=== PATIENT | female | born 1940 | race Caucasian/White ===

== ENCOUNTER 2017-09-17 13:24 | Outpatient (CLI) | payer OTHER | END 2017-09-17 13:25 | disposition home or self-care (01) | LOC: BICRAD 13:24 | PROVIDERS: ATTEND Family Medicine | DX: M54.5 Low back pain (principal); M47.816 Spondylosis without myelopathy or radiculopathy, lumbar region; Z98.1 Arthrodesis status | CPT/HCPCS: 72110 ==

== ENCOUNTER 2017-12-11 14:44 | Outpatient (CLI) | payer OTHER ==
[~2017-12-11 14:44] MED LIST: Gadobenate Dimeglumine 529 MG/1 ML (20ML VIAL) ONE
--- NOTE | 2017-12-11 18:36 | RAD ---
LUMBAR SPINE FOUR VIEWS INCLUDING FLEXION AND EXTENSION LATERAL VIEWS: 12/11/17 HISTORY: 77-year-old female with history of low back pain, prior low back surgery as well as some lumbar radic ulopathy primarily in the left hip and groin. Postop laminectomy changes are noted at L3 and L4. Mild levoscoliosis. Approximately 1.0 cm anterolisthesis of L4 on L5 without significant abnormal transla tion between flexion and extension. Multilevel disc osteophytosis and facet arthrosis. Postop changes in the upper and mid abdomen. IMPRESSION: Laminectomy changes at L3 and L4 with anterolisthesis of L4 on L5 without abnormal translation betwee n flexion and extension. Mild scoliosis. Generalized spondylosis. No evidence for acute fracture. POS: [facility]
--- NOTE | 2017-12-11 18:59 | MRI ---
MRI LUMBAR SPINE WITH AND WITHOUT GADOLINIUM CONTRAST: 12/11/17 HISTORY: Low back pain. Left leg radiculopathy. Prior lumbar spine surgery September 2016. FINDINGS: The conus medullaris has a normal appearance. There is desiccation of all of the intervertebral discs . Vertebral body heights are maintained. Scattered mild discogenic end plate changes and Schmorl's no marianna are apparent within the bone marrow of the end plates. Mild posterior disc bulges are apparent at the T11-12 and T10-11 levels at the lower thoracic spine o n the sagittal images. T12-L1: Disc spaces narrowing. Mild posterior disc bulge. The thecal sac and neural foramen are paten t. L1-2: Mild osteophytosis. The central canal and neural foramina are patent. L2-3: Diffuse posterior disc bulge. Circumferential degenerative changes result in mild stenosis of t he central canal and moderate stenosis of each neural foramen. L3-4: Mild disc bulge. Circumferential degenerative changes result in mild stenosis of the central c anal. There is moderate right and severe left foraminal stenoses. L4-5: Disc space narrowing. Grade I degenerative spondylolisthesis. Posterior operative decompression , so that the thecal sac is patent. Mild right and moderate left foraminal stenoses. At the posterior element operative defect, just to the right of midline, a lobular collection of fluid measures up to 3.4 cm in length x 1.9 cm in depth x 2.0 cm width and abuts the posterior aspect of the epidural sac . It is surrounded by enhancing scar tissue that extends superiorly to the level of the L2-3 interspa ce. L5-S1: Mild disc bulge. Osteophytosis of the facets. The thecal sac and neural foramina remain patent . IMPRESSION: 1. Degenerative changes of the lumbar spine as detailed above. Stenosis is most severe at the le ft L3-4 neural foramen. Clinical correlation regarding the left L3 dermatome is required. 2. Posterior operative decompression at the L4-5 level. There is a large area of scar tissue con taining a residual fluid collection measuring up to 3.3 cm length. POS: [facility]
== END 2017-12-11 14:45 | disposition home or self-care (01) ==
LOC: SCSMRI 14:44
PROVIDERS: ATTEND Surgery
DX: M47.26 Other spondylosis with radiculopathy, lumbar region (principal); M43.16 Spondylolisthesis, lumbar region; M41.9 Scoliosis, unspecified; M99.83 Other biomechanical lesions of lumbar region; L90.5 Scar conditions and fibrosis of skin; Z98.1 Arthrodesis status
CPT/HCPCS: 72120; 72158; 82565; A9579

== ENCOUNTER 2017-12-29 11:43 | Outpatient (CLI) | payer OTHER ==
[2017-12-29 13:26] LABS: Hemoglobin 14.4 g/dL (12.0-16.0); Mean Corpuscular HGB CONC 34.6 g/dL (32.0-36.0); Mean Corpuscular Hemoglobin 31.1 pg (27.0-31.0); Mean Corpuscular Volume 90.1 fl (81.0-99.0); Mean Platelet Volume 6.8 fL (7.4-10.4); Platelet Count 179 thou/uL (130-400); RBC Distribution Width 11.7 % (11.5-14.5); Red Blood Cell (RBC) Count 4.62 mill/uL (4.20-5.40); White Blood Cell (WBC) Count 8.1 thou/uL (4.8-10.8)
[2017-12-29 13:33] LABS: Prothrombin Time 13.5 SEC (12.0-14.7)
[2017-12-29 13:34] LABS: PTT 26.9 SEC (22.9-36.1)
[2017-12-29 13:54] LABS: Anion Gap 12 mmol/L (10-20); BUN (Urea Nitrogen) 13 mg/dL (9.8-20.1); Calc. Creatinine Clearance 0 mL/min (70-130); Calcium 9.7 mg/dL (7.8-10.44); Carbon Dioxide 24 mmol/L (23-31); Chloride 104 mmol/L (98-107); Estimated GFR-MDRD 70; Glucose 144 mg/dL (83-110); Potassium 4.3 mmol/L (3.5-5.1); Sodium 136 mmol/L (136-145)
--- NOTE | 2017-12-29 22:11 | EKG ---
Test Reason : Blood Pressure : / mmHG Vent. Rate : 068 BPM Atrial Rate : 068 BPM P-R Int : 144 ms QRS Dur : 070 ms QT Int : 422 ms P-R-T Axes : -04 021 060 degrees QTc Int : 448 ms Normal sinus rhythm Normal ECG Confirmed by VIANEY LI M.D. ([id number]) on 12/29/2017 10:10:57 PM Referred By: HONEY Confirmed By:VIANEY LI M.D.
== END 2017-12-29 11:44 | disposition home or self-care (01) ==
LOC: LABBT 11:43
PROVIDERS: ATTEND Surgery
DX: Z01.818 Encounter for other preprocedural examination (principal); M51.16 Intervertebral disc disorders with radiculopathy, lumbar region
CPT/HCPCS: 80048; 85027; 85610; 85730; 93005; 93010

== ENCOUNTER 2018-01-01 05:50 | Observation (INO) | payer OTHER ==
[2017-12-29 12:35] VITALS: BMI 32.5
[2018-01-01] MEDS ORDERED: Bacitracin Zinc Ointment 30 gm TUBE ONE (06:27)
[2018-01-01] MEDS ORDERED: Sodium Chloride 0.9% 10 ML ONE (06:27)
[2018-01-01] MEDS ORDERED: Thrombin 5000 UNITS/5 ML VIAL ONE (06:27)
[2018-01-01] MEDS ORDERED: CEFAZOLIN/Water 2 GM/20 ML SYRINGE ONE (07:09)
[2018-01-01] MEDS ORDERED: Albumin 5% 0 ML ONE (07:09)
[2018-01-01] MEDS ORDERED: Famotidine/PF 20 mg/2ml Vial ONE (07:09)
[2018-01-01] MEDS ORDERED: Fentanyl 100 MCG/2 ML VIAL ONE ×5 (07:09→11:37)
[2018-01-01] MEDS ORDERED: Scopolamine 1.5 mg/72 hour Patch ONE (07:35)
[2018-01-01] MEDS ORDERED: Morphine 4 MG/ML VIAL ONE (11:04)
[2018-01-01] MEDS ORDERED: traMADol HCl 50 MG TAB PO PRN ×2 (12:22)
[2018-01-01] MEDS ORDERED: Mag-Al 1200 mg/1200 mg/30 ML UDCUP PO PRN (12:22)
[2018-01-01] MEDS ORDERED: HYDROcodone/Acetaminophen 7.5/325 mg Tablet PO PRN ×2 (12:22)
[2018-01-01] MEDS ORDERED: Bisacodyl 10 MG SUPP PR PRN (12:22)
[2018-01-01] MEDS ORDERED: tiZANidine HCl 4 MG TAB PO PRN (12:22)
[2018-01-01] MEDS ORDERED: Fleet Enema 133 ML BOT PR PRN (12:22)
[2018-01-01] MEDS ORDERED: Zolpidem Tartrate 5 MG TAB PO PRN (12:22)
[2018-01-01] MEDS ORDERED: Milk Of Magnesia 30 ML UDCUP PO PRN (12:22)
[2018-01-01] MEDS ORDERED: Ondansetron HCl/PF 4 MG/2 ML Vial IM PRN (12:24)
[2018-01-01] MEDS ORDERED: Morphine 4 MG/ML VIAL SLOW IVP PRN ×2 (12:28→12:29)
--- NOTE | 2018-01-01 12:31 | OP ---
DATE OF PROCEDURE: 01/01/2018 OR: OR #11 WOUND TYPE: Type 1 wound. SURGEON: Jad Barnett M.D. PREPROCEDURE DIAGNOSES: Left L3 and left L4 radiculopathy with history of L2-L5 decompressive eran ctomy with disk extrusion and far lateral component. PROCEDURE: 1. Left L3-L4 hemilaminotomy, foraminotomy for diskectomy for decompression of the traversing left L 4 nerve root. 2. Transfacet lateral approach for decompression of the exiting left L3 nerve root due to lateral di sk extrusion. 3. Use of operative microscope for microdissection. DESCRIPTION OF PROCEDURE: After informed consent was obtained from the patient, the patient was brou ght to OR 11. Proper patient pause and identification was carried out. She was placed under excelle nt endotracheal anesthesia and positioned prone on the operating table. All appropriate points were padded. The prior L2-L5 wound was identified and a linear jose drawn out in this region. This area was sterilely cleansed, prepared, and draped. Proper patient pause and identification was carried ou t. Midline wound was opened and we proceeded over the left L2, L3 and left L3-L4 segments and identi fied the pars of L3 and L4 on the left side. We then used localization film to identify our area of interest and left L3-L4 hemilaminotomies were performed. The microscope was then brought in the fie ld and we worked through scar tissue and identified the exiting left L3 nerve root and then the trave rsing left L4 nerve root. The disk space was then identified and entered and a paracentral diskectom y was performed through standard left L3-L4 hemilaminotomy approach. I then turned to the far latera l component utilizing a transfaucet and identified the exiting left L3 nerve root and far lateral dis k material. This was then removed outside of the foramen to maximize decompression of the exiting le ft L3 nerve root. At the conclusion of the case I felt as if we had excellent decompression of the e xiting left L3 and traversing left L4 nerve roots. Copious irrigation occurred throughout as did max imizing hemostasis. The wound was then closed in anatomic layers following the sprinkling of vancomy lacey powder. The patient then emerged from anesthesia.
[2018-01-01] MEDS ORDERED: Gabapentin 300 MG CAP PO PRN (12:32)
[2018-01-01] MEDS ORDERED: Morphine 4 MG/ML Carpuject SLOW IVP PRN (12:54)
[2018-01-01] MEDS ORDERED: Ondansetron HCl/PF 4 MG/2 ML Vial IVP PRN (12:54)
[2018-01-01] MEDS ORDERED: Non-Formulary Medication 1 EACH PO PRN (12:54)
[2018-01-01] MEDS ORDERED: Promethazine HCl 25 MG/ML VIAL IM/IV PRN (12:54)
[2018-01-01] MEDS ORDERED: Morphine Sulfate 2 MG/ML SYRINGE SLOW IVP PRN (12:54)
[2018-01-01] MEDS: Sodium Chloride 0.9% 1,000 ML IV SCH (13:13)
[2018-01-01] MEDS ORDERED: Glycopyrrolate 0.2 MG/ML 5 ML SYRINGE ONE (14:36)
[2018-01-01] MEDS ORDERED: PHENYLEPHRINE-NS 100 MCG/ML 10 ML SYRINGE ONE (14:36)
[2018-01-01] MEDS ORDERED: Ondansetron HCl/PF 4 MG/2 ML Vial ONE (14:36)
[2018-01-01] MEDS ORDERED: Lidocaine 1% PF 5 ML VIAL ONE (14:36)
[2018-01-01] MEDS ORDERED: PROPOFOL 200 MG/20 ML VIAL ONE (14:36)
[2018-01-01] MEDS: CEFAZOLIN/Water 2 GM/20 ML SYRINGE SLOW IVP SCH (17:51)
[2018-01-01] MEDS: Ketorolac Tromethamine 30 MG/ML VIAL IVP SCH (17:59)
[2018-01-01] MEDS: Ciprofloxacin 500 MG TAB PO SCH (20:52)
[2018-01-01] MEDS ORDERED: traZODone HCl 50 MG TAB PO SCH (21:00)
[2018-01-01] MEDS ORDERED: DULoxetine 60 MG CAP PO SCH (21:00)
[2018-01-02] MEDS: Sodium Chloride 0.9% 1,000 ML IV SCH (00:01)
[2018-01-02] MEDS: Ketorolac Tromethamine 30 MG/ML VIAL IVP SCH ×2 (00:01→05:10)
[2018-01-02] MEDS: CEFAZOLIN/Water 2 GM/20 ML SYRINGE SLOW IVP SCH (02:14)
[2018-01-02] MEDS: Ciprofloxacin 500 MG TAB PO SCH (05:09)
[2018-01-02 08:01] VITALS: BP 117/53; TEMP 98.4
--- NOTE | 2018-01-02 09:27 | PRG ---
DATE OF SERVICE: 01/02/2018 Ms. Landis is postoperative day 1 from left L3-L4 hemilaminotomy, foraminotomy, and [facility]ression of the left L3 and left L4 nerve roots. She is doing very well this morning with resolution in her left leg pain. She has good strength throughout her lower extre mity myotomes. She has ambulated in her room, but not yet in the [facility]. Her dressing is dry. We manjinder l plan for discharge today. We went over intra and postoperative issues.
--- NOTE | 2018-01-05 09:38 | DIS ---
Ms. Landis is known to me. She has a history of multilevel lumbar stenosis with improvement followi ng multilevel lumbar laminectomy. Recently, she developed left L3 and left L4 radiculopathy and was found to have a far lateral disk extrusion compressing the left L3 with a paracentral component and f acet hypertrophy compressing the left L4 nerve root. She underwent surgery which was a left L3-L4 de compression of the transfacet lateral approach for removal of the lateral disk extrusion. She tolera thalia this well and was dismissed the next day neurologically at her baseline.
== END 2018-01-02 11:15 | disposition home or self-care (01) ==
LOC: SDC 05:50 → SJJU 11:16 → SDC 12:34
PROVIDERS: ADMIT Surgery; ATTEND Surgery
PROC: 00NY0ZZ Release Lumbar Spinal Cord, Open Approach (ICD-10-PCS; principal; 2018-01-02)
PROC: 0SB20ZZ Excision of Lumbar Vertebral Disc, Open Approach (ICD-10-PCS; 2018-01-02)
DX: Z98.890 Other specified postprocedural states; M51.16 Intervertebral disc disorders with radiculopathy, lumbar region
CPT/HCPCS: 76001; 96361; 96374; 96375; 96376; A4216; G0378; J0131; J1885; J2001; J2270; J2405; J2704; J3010; J3370; J3490; P9045; S0028

== ENCOUNTER 2018-06-24 21:57 | Emergency (ER) | payer OTHER | END 2018-06-24 23:06 | disposition home or self-care (01) | LOC: ERS 21:57 | DX: Z00.00 Encounter for general adult medical examination without abnormal findings (principal); Z79.899 Other long term (current) drug therapy | CPT/HCPCS: 99283 ==

== ENCOUNTER 2018-10-20 07:32 | Outpatient (CLI) | payer OTHER ==
--- NOTE | 2018-10-20 08:58 | CT ---
NONCONTRAST ENHANCED CT IMAGES OF BRAIN WELL CONTRAST ENHANCED CTA BRAIN WITH 2D AND 3D RECONST RUCTION IMAGES PERFORMED ON AN INDEPENDENT 3D WORK STATION: HISTORY: Headache. The patient by history gives a history of aneurysm. FINDINGS: A noncontrast-enhanced CT of the brain demonstrates no evidence of acute strokes, masses, or hemorrha ges. CTA images brain demonstrate a left frontal lobe venous angioma. No evidence of intracranial aneurysms or vascular malformations seen otherwise. The ICA, MCA, COLLEEN, a nd posterior cerebral arteries are all unremarkable without evidence of aneurysms. No evidence of intracranial hemorrhage is seen. IMPRESSION: 1. Left frontal lobe venous angioma. 2. No evidence of significant intracranial masses or lesions seen otherwise. POS: [facility]
[2018-10-20] MEDS ORDERED: ISOVUE-370 76%-LOCM 1 ML ONE (09:49)
== END 2018-10-20 07:33 | disposition home or self-care (01) ==
LOC: BICCT 07:32
PROVIDERS: ATTEND Family Medicine
DX: R51 Headache (principal); D18.02 Hemangioma of intracranial structures
CPT/HCPCS: 70496; 82565

== ENCOUNTER 2019-06-19 20:04 | Emergency (ER) | payer OTHER ==
[2019-06-19 20:41] LABS: #Basophils 0.1 thou/uL (0.0-0.2); #Eosinphils 0.7 thou/uL (0.0-0.7); #Lymphocytes 3.2 thou/uL (1.20-3.40); #Monocytes 0.7 thou/uL (0.11-0.59); #Neutrophils 4.8 thou/uL (1.40-6.50); %Basophils 1.1 % (0.0-1.0); %Eosinophils 6.9 % (0.0-10.0); %Lymphocytes 33.6 % (21.0-51.0); %Monocytes 7.3 % (0.0-10.0); %Neutrophils 51.1 % (42.0-75.0); Hemoglobin 14.9 g/dL (12.0-16.0); Mean Corpuscular HGB CONC 34.8 g/dL (32.0-36.0); Mean Corpuscular Hemoglobin 31.8 pg (27.0-31.0); Mean Corpuscular Volume 91.3 fL (78.0-98.0); Mean Platelet Volume 6.9 fL (7.4-10.4); Platelet Count 186 thou/uL (130-400); RBC Distribution Width 11.7 % (11.5-14.5); Red Blood Cell (RBC) Count 4.68 mill/uL (4.20-5.40); White Blood Cell (WBC) Count 9.5 thou/uL (4.8-10.8)
--- NOTE | 2019-06-19 20:43 | RAD ---
Frontal radiograph chest: 06/19/2019 COMPARISON: None HISTORY: Cough, fever, congestion, shortness of breath FINDINGS: No pneumothorax or pleural fluid. No focal consolidation or alveolar edema. Postoperative a nchors overlie the right humeral head. Postoperative clips are noted in the left upper quadrant. IMPRESSION: No radiographic evidence of acute cardiopulmonary disease.
[2019-06-19] MEDS ORDERED: methylPREDNISolone Sod Succ/PF 125 MG/2 ML VIAL ONE (20:52)
[2019-06-19] MEDS ORDERED: Albuterol Sulfate 2.5 mg/3 ml Neb ONE (20:57)
[2019-06-19 21:04] LABS: ALT (SGPT) 11 U/L (8-55); AST (SGOT) 13 U/L (5-34); Albumin 4.2 g/dL (3.4-4.8); Alkaline Phosphatase 86 U/L (40-150); Anion Gap 12 mmol/L (10-20); BUN (Urea Nitrogen) 15 mg/dL (9.8-20.1); Bilirubin, Total 0.5 mg/dL (0.2-1.2); Calc. Creatinine Clearance 0 mL/min (70-130); Calcium 10.2 mg/dL (7.8-10.44); Carbon Dioxide 25 mmol/L (23-31); Chloride 106 mmol/L (98-107); Estimated GFR-MDRD 67; Globulin 2.6 g/dL (2.4-3.5); Glucose 116 mg/dL (83-110); Potassium 4.2 mmol/L (3.5-5.1); Protein, Total 6.8 g/dL (6.0-8.3); Sodium 139 mmol/L (136-145)
== END 2019-06-19 23:00 | disposition home or self-care (01) ==
LOC: ERS 20:04
DX: R06.2 Wheezing (principal); I10 Essential (primary) hypertension; F31.9 Bipolar disorder, unspecified; Z79.899 Other long term (current) drug therapy
CPT/HCPCS: 71045; 80053; 84484; 85025; 93005; 94760; 96374; J2930; J7611

== ENCOUNTER 2020-02-22 13:42 | Outpatient (CLI) | payer OTHER ==
--- NOTE | 2020-02-22 16:52 | RAD ---
EXAM: CERVICAL SPINE FOUR VIEWS: 02/22/20 HISTORY: Neck pain. Left arm pain. C7 and T1 are obscured on the lateral views. No significant prevertebral soft tissue swelling. Genera lized disc osteophytosis and facet arthrosis. No significant prevertebral soft tissue swelling. IMPRESSION: Cervical spondylosis. No abnormal translation between flexion and extension. POS: [facility]
--- NOTE | 2020-02-22 17:00 | RAD ---
EXAM: LUMBAR SPINE FOUR VIEWS INCLUDING STANDING FLEXION AND EXTENSION VIEWS: 02/22/20 HISTORY: Low back pain and left leg pain. FINDINGS: Postop changes at L3 and L4 with laminectomy. Surgical clips in the region of the gallbladder and the epigastrium as well as bowel anastomotic postsurgical changes in the left lower abdomen. There are g eneralized disc osteophytosis and facet arthrosis changes. There is an approximately 0.8 cm grade I a nterolisthesis of L4 on L5. This shows no abnormal translation between flexion and extension. IMPRESSION: Laminectomy changes. Lumbar spondylosis. Stable grade I anterolisthesis of L4 on L5 without abnormal translation between flexion and extension. POS: [facility]
== END 2020-02-22 13:43 | disposition home or self-care (01) ==
LOC: BICRAD 13:42
PROVIDERS: ATTEND Surgery
DX: M54.5 Low back pain (principal); M79.605 Pain in left leg; M25.512 Pain in left shoulder; M54.2 Cervicalgia; M79.602 Pain in left arm; M62.81 Muscle weakness (generalized); Z98.890 Other specified postprocedural states; M43.16 Spondylolisthesis, lumbar region; M47.812 Spondylosis without myelopathy or radiculopathy, cervical region
CPT/HCPCS: 72050; 72110

== ENCOUNTER 2020-09-02 19:55 | Observation (INO) | payer OTHER ==
[~2020-09-02 19:55] MED LIST changes: -Gadobenate Dimeglumine 529 MG/1 ML (20ML VIAL) ONE; +Iopamidol-370 76% 500 ML 1 ML ONE
[2020-09-02 21:03] LABS: Bacteria/HPF None Seen HPF (None Seen); Bilirubin Negative (Negative); Blood, Urine 3+ (Negative); Clarity Clear (Clear); Glucose, Urine (Dipstick) Normal (Negative); Ketone, Urine Negative (Negative); Leukocyte Negative Leu/uL (Negative); Nitrite Negative (Negative); Protein, Urine (Dipstick) 10 mg/dL (Neg-Trace); RBC/HPF Greater than 50 HPF (0-3); Specific Gravity, Urine 1.027 (1.002-1.036); Squamous Epithelial 0-3 HPF (0-3); Urobilinogen Normal mg/dL (Less than 2); pH, Urine 6.5 (5.0-9.0)
[2020-09-02 22:24] LABS: #Basophils 0.1 thou/uL (0.0-0.2); #Eosinphils 0.4 thou/uL (0.0-0.7); #Lymphocytes 3.8 thou/uL (1.20-3.40); #Monocytes 0.7 thou/uL (0.11-0.59); #Neutrophils 5.6 thou/uL (1.40-6.50); %Basophils 0.6 % (0.0-1.0); %Eosinophils 3.6 % (0.0-10.0); %Lymphocytes 35.7 % (21.0-51.0); %Monocytes 6.9 % (0.0-10.0); %Neutrophils 53.2 % (42.0-75.0); Hemoglobin 15.8 g/dL (12.0-16.0); Mean Corpuscular HGB CONC 35.1 g/dL (32.0-36.0); Mean Corpuscular Hemoglobin 31.6 pg (27.0-31.0); Mean Corpuscular Volume 90.1 fL (78.0-98.0); Mean Platelet Volume 7.6 fL (7.4-10.4); Platelet Count 188 thou/uL (130-400); RBC Distribution Width 11.8 % (11.5-14.5); Red Blood Cell (RBC) Count 4.99 mill/uL (4.20-5.40); White Blood Cell (WBC) Count 10.6 thou/uL (4.8-10.8)
[2020-09-02 22:44] LABS: ALT (SGPT) 22 U/L (8-55); AST (SGOT) 21 U/L (5-34); Albumin 4.3 g/dL (3.4-4.8); Alkaline Phosphatase 84 U/L (40-110); Anion Gap 19 mmol/L (10-20); BUN (Urea Nitrogen) 22 mg/dL (9.8-20.1); Bilirubin, Total 1.3 mg/dL (0.2-1.2); Calc. Creatinine Clearance 0 mL/min (70-130); Calcium 10.2 mg/dL (7.8-10.44); Carbon Dioxide 21 mmol/L (23-31); Chloride 106 mmol/L (98-107); Glucose 129 mg/dL (83-110); Lipase 24 U/L (8-78); Potassium 4.4 mmol/L (3.5-5.1); Protein, Total 7.3 g/dL (6.0-8.3); Sodium 142 mmol/L (136-145)
[2020-09-02] MEDS ORDERED: Morphine 4 MG/ML VIAL ONE (22:44)
[2020-09-02] MEDS ORDERED: Ondansetron PF 4 MG/2 ML Vial ONE (22:44)
[2020-09-02] MEDS ORDERED: HYDROmorphone 0.5 MG/0.5 ML SYRINGE ONE (23:25)
[2020-09-03] MEDS ORDERED: Haloperidol Lactate 5 MG/ML VIAL ONE (00:12)
[2020-09-03] MEDS ORDERED: diphenhydrAMINE 50 MG/ML VIAL ONE (00:16)
--- NOTE | 2020-09-03 01:34 | PDOC.FPRHP ---
- History of Present Illness Chief Complaint: Abdominal pain History of Present Illness: This is a 79yo F here with CC of left flank pain that started arund 4am on 09/02 and got progressively worse. She reports hx of kidney stones on the right and have to have surgery about 40 years ago. Reports pain is on left side and goes around and to her back. She take 2 Norcos at home around 4-5pm without any improvement in her symptoms Reports sharp pain. Pain 10/10. Reports pain now is better to where she can tolerate it. Worse lying flat on her back. Worse with deep breath. Decreased appetite over last day or so. Denies dysuria, or change in frequency. Denies blood in urine. Denies fever, chills, NVD, chest pain, palpitations, SOB. Reports headache while in the ER that is now gone. She did takes her medications today. ED Course: Patient got 8 mg morphine, 500 mL NS, 0.5 mg dilaudid, 2.5 mg Haldol, 50 mg Benadryl. - Allergies/Adverse Reactions Allergies Allergy/AdvReac Type Severity Reaction Status Date / Time No Known Drug Allergies Allergy Verified 12/16/19 15:16 - Home Medications Medication Instructions Recorded Confirmed Type Acetaminophen [Tylenol Regular 650 mg PO Q4H PRN tab 09/03/20 Rx Strength] Albuterol Sulfate [Proair 90 mcg IH Q4HR PRN 09/03/20 09/03/20 History Digihaler] Cyanocobalamin 1000 MCG/ML VIA 100 mcg IM Q7DAYS 09/03/20 09/03/20 History [Vitamin B-12] DULoxetine [Cymbalta] 60 mg PO BID 09/03/20 09/03/20 History Omeprazole 40 mg PO DAILY 09/03/20 09/03/20 History Ondansetron [Zofran ODT] 8 mg PO Q8HR #15 tab 09/03/20 Rx QUEtiapine Fumarate [Seroquel] 50 mg PO TID 09/03/20 09/03/20 History Tamsulosin HCl [Flomax] 0.4 mg PO DAILY #14 cap 09/03/20 Rx Zolpidem Tartrate [Ambien] 10 mg PO HS PRN 09/03/20 09/03/20 History cloNIDine [Athyczlh-NLV-8 Patch] 0.1 mg TD Q7DAYS 09/03/20 09/03/20 History - History PMHx: Hypertension, bipolar, brain aneurysm PSHx: Back surgery x 2, bypass many years ago, hysterectomy, right sided kidney stone surgery FHx: Maternal side - strokes Social: denies alcohol tobacco, or drug use - Review of Systems General: denies: fever/chills, weight/appetite/sleep changes, night sweats Eyes: denies: vision changes ENT: reports: rhinorrhea. denies: nasal congestion Respiratory: denies: cough, congestion, shortness of breath, exercise intolerance Cardiovascular: denies: chest pain, palpitation, edema Gastrointestinal: reports: nausea, abdominal pain. denies: vomiting, diarrhea, constipation Genitourinary: denies: dysuria Skin: denies: rashes, lesions Musculoskeletal: reports: pain. denies: tenderness, stiffness, swelling Neurological: denies: weakness - Vital signs BP: 157/73, Pulse: 77, Resp: 24, Temp: 97.4 (Oral), Pain: 10 (Constant), O2 sat: 100 on (Room Air), Time: 09/02/2020 19:56. Wt 82 kg - Physical Exam Constitutional: NAD, awake, alert and oriented HEENT: normocephalic and atraumatic, PERRLA, EOMI, no scleral icterus, grossly normal vision, grossly normal hearing, MMM Neck: supple, FROM, trachea midline Chest: no-tender to palpation Heart: RRR, normal S1/S2, no murmurs/rubs/gallops Lungs: CTAB, no respiratory distress, good air movement, no wheezing, no retractions Abdomen: soft, non-tender, bowel sounds present Musculoskeletal: normal structure Neurological: no focal deficit Skin: no rash/lesions, good turgor, capillary refill <2 seconds Psychiatric: normal mood and affect FMR H&P: Results - Labs Result Diagrams: 09/03/20 05:12 09/03/20 13:45 Lab results: WBC 10.6 thou/uL (4.8-10.8) 09/02/20 22:11 Hgb 15.8 g/dL (12.0-16.0) 09/02/20 22:11 Hct 45.0 % (36.0-47.0) 09/02/20 22:11 MCV 90.1 fL (78.0-98.0) 09/02/20 22:11 Plt Count 188 thou/uL (130-400) 09/02/20 22:11 Neutrophils % 53.2 % (42.0-75.0) 09/02/20 22:11 Sodium 142 mmol/L (136-145) 09/02/20 22:11 Potassium 4.4 mmol/L (3.5-5.1) 09/02/20 22:11 Chloride 106 mmol/L (98-107) 09/02/20 22:11 Carbon Dioxide 21 mmol/L (23-31) L 09/02/20 22:11 BUN 22 mg/dL (9.8-20.1) H 09/02/20 22:11 Creatinine 1.14 mg/dL (0.6-1.1) H 09/02/20 22:11 Glucose 129 mg/dL (83-110) H 09/02/20 22:11 Lactic Acid 6.2 mmol/L (0.5-2.2) H* 09/03/20 00:29 Calcium 10.2 mg/dL (7.8-10.44) 09/02/20 22:11 Total Bilirubin 1.3 mg/dL (0.2-1.2) H 09/02/20 22:11 AST 21 U/L (5-34) 09/02/20 22:11 ALT 22 U/L (8-55) 09/02/20 22:11 Alkaline Phosphatase 84 U/L (40-110) 09/02/20 22:11 Serum Total Protein 7.3 g/dL (6.0-8.3) 09/02/20 22:11 Albumin 4.3 g/dL (3.4-4.8) 09/02/20 22:11 Lipase 24 U/L (8-78) 09/02/20 22:11 Urine Ketones Negative mg/dL (Negative) 09/02/20 20:45 Urine Blood 3+ (Negative) A 09/02/20 20:45 Urine Nitrite Negative (Negative) 09/02/20 20:45 Ur Leukocyte Esterase Negative Wei/uL (Negative) 09/02/20 20:45 Urine RBC Greater than 50 HPF (0-3) A 09/02/20 20:45 Urine WBC 4-6 HPF (0-3) A 09/02/20 20:45 Ur Squamous Epith Cells 0-3 HPF (0-3) 09/02/20 20:45 Urine Bacteria None Seen HPF (None Seen) 09/02/20 20:45 - Radiology Interpretation CT scan - abdomen Status: report reviewed by me (no evidence of aneurysm or dissection. Mild left sided obstructive uropathy secondary to a recently passed calculus in the urinary bladder. Left sided perinephric fat stranding as well as periurethral fat stranding. 2mm bladder calculus.) FMR H&P: A/P - Plan Lactic Acidosis - Likely 2/2 passed kidney stone, no signs of bowel ischemia or other infectious cause - Evidence of renal calculi on CT - Morphine for pain control - Flomax - LR bolus, then LR @ 125 cc/hr Hypertension - Restart home clonidine - monitor VS Fluids: 1L LR bolus, then LR @125 Diet: HH GI PPX: Protonix DVT Ppx: Lovenox Dispo: Admit medicine obs, LOS likely <48 hrs FMR H&P: Upper Level - Plan Date/Time: 09/03/20131 IVane MD, have evaluated this patient and agree with findings/plan as outlined by journalism intern resident. Pertinent changes/additions are listed here. This is a 79yo F here today with PMH of HTN, hx of kidney stones, bipolar disorder who presents today with CC of left sided abd pain. She reports that the pain started around 4am on 09/02 on her left side, sharp, radiates to front and back. Pain persisted throughout the day. She had decreased appetite but was able to drink some water. Denies any changes in her urine including blood or burning or frequency. She denies any fever or chills. She reports a hx of a kidney stone many years ago that required surgery. Patient given several medications for pain and a 500ml bolus in the ER. Labs were normal except for a LA of 6. CT showing mild obstructive uropathy on the left with 2mm stone in the bladder. PE unremarkable except for mild left sided abd pain. No CVA tenderness b/l. MM dry, poor dentition. Will admit the patient to medical, obs for lactic acidosis and JANA likely 2/2 nephrolithiasis and mild dehydration. Will give fluids. Will give medication for pain. Will give flomax. Will strain urine for stone for further classification. Will continue medications for chronic medical conditions. See journalism intern note for full details. Dispo: admit to med, obs Code: DNAR, discussed with patient PCP: Nidia Case to be discussed with Dr. Reilly in the morning. Addendum - Attending - Attending Attestation Date/Time: 09/03/20 [id number] I personally evaluated the patient and discussed the management with Dr. Ramos/Denzel. H&P repeated by me. I agree with the History, Examination, Assessment and Plan documented above with any addition or exceptions noted below. Nephrolithiaisis- appears to have passed stone into bladder. Flomax, IVF and strain urine. No sign of infection. Lactic acidosis- IVF and trend Mild JANA Possible d/c this pm if lactate and Cr normalize.
[2020-09-03] MEDS ORDERED: Acetaminophen 650 MG Suppository PR PRN (02:09)
[2020-09-03] MEDS ORDERED: Ondansetron ODT 4 MG TAB PO PRN (02:09)
[2020-09-03] MEDS ORDERED: Acetaminophen 325 MG TAB PO PRN (02:09)
[2020-09-03] MEDS ORDERED: Calcium Carbonate 500 MG ChewTAB PO PRN (02:09)
[2020-09-03] MEDS ORDERED: Ondansetron PF 4 MG/2 ML Vial IVP PRN (02:09)
[2020-09-03] MEDS ORDERED: Tamsulosin HCl 0.4 MG CAP PO SCH ×2 (02:15→09:00)
[2020-09-03] MEDS ORDERED: Lactated Ringer's 1,000 ML IV SCH (02:15)
[2020-09-03] MEDS ORDERED: Morphine 2 MG/ML SYRINGE SLOW IVP PRN (02:15)
[2020-09-03 05:17] VITALS: BMI 30.6
[2020-09-03 05:25] LABS: #Lymphocytes 1.5 thou/uL (1.20-3.40); #Monocytes 0.6 thou/uL (0.11-0.59); #Neutrophils 8.8 thou/uL (1.40-6.50); %Basophils 0.2 % (0.0-1.0); %Eosinophils 0.2 % (0.0-10.0); %Lymphocytes 13.4 % (21.0-51.0); %Monocytes 5.6 % (0.0-10.0); %Neutrophils 80.6 % (42.0-75.0); Hemoglobin 14.3 g/dL (12.0-16.0); Mean Corpuscular HGB CONC 34.2 g/dL (32.0-36.0); Mean Corpuscular Volume 90.6 fL (78.0-98.0); Mean Platelet Volume 7.8 fL (7.4-10.4); Platelet Count 131 thou/uL (130-400); RBC Distribution Width 11.9 % (11.5-14.5); Red Blood Cell (RBC) Count 4.61 mill/uL (4.20-5.40); White Blood Cell (WBC) Count 10.9 thou/uL (4.8-10.8)
[2020-09-03 05:37] LABS: Lactic Acid 3.1 mmol/L (0.5-2.2)
[2020-09-03 05:49] LABS: Anion Gap 16 mmol/L (10-20); BUN (Urea Nitrogen) 22 mg/dL (9.8-20.1); Calc. Creatinine Clearance 46 mL/min (70-130); Calcium 8.8 mg/dL (7.8-10.44); Carbon Dioxide 22 mmol/L (23-31); Chloride 107 mmol/L (98-107); Glucose 148 mg/dL (83-110); Potassium 4.5 mmol/L (3.5-5.1); Sodium 140 mmol/L (136-145)
[2020-09-03] MEDS: Lactated Ringer's 1,000 ML IV SCH ×3 (07:38→15:56)
[2020-09-03] MEDS ORDERED: Ibuprofen 800 MG TAB PO PRN (07:47)
[2020-09-03] MEDS ORDERED: Non-Formulary Item 1 EACH (Zolpidem Tartrate [Ambien] 10 MG Tablet) PO PRN (07:49)
[2020-09-03] MEDS ORDERED: Zolpidem Tartrate 5 MG TAB PO PRN (07:53)
[2020-09-03] MEDS ORDERED: cloNIDine 0.1mg/24 Hour PATCH TD SCH (09:00)
[2020-09-03] MEDS ORDERED: DULoxetine 60 MG CAP PO SCH (09:00)
[2020-09-03] MEDS ORDERED: Enoxaparin Sodium 40 MG/0.4 ML SYRINGE SC SCH (09:00)
[2020-09-03] MEDS ORDERED: FLU VACC QS2020-21(65YR UP)/PF 240 MCG/0.7 ML SYRINGE IM ONE (09:00)
[2020-09-03] MEDS ORDERED: Non-Formulary Item 1 EACH (Quetiapine Fumarate [Seroquel] 50 MG Tablet) PO SCH (09:00)
[2020-09-03 10:20] LABS: SARS-CoV-2 MS2 Positive; SARS-CoV-2 N Gene Negative; SARS-CoV-2 S Gene Negative; SARS-CoV-2 by NAA Not Detected (NotDetected); SARS-CoV-2 orf1ab Negative
[2020-09-03 14:14] LABS: Lactic Acid 1.8 mmol/L (0.5-2.2)
[2020-09-03 14:17] LABS: Anion Gap 15 mmol/L (10-20); BUN (Urea Nitrogen) 16 mg/dL (9.8-20.1); Calc. Creatinine Clearance 66 mL/min (70-130); Calcium 9.1 mg/dL (7.8-10.44); Carbon Dioxide 24 mmol/L (23-31); Chloride 106 mmol/L (98-107); Glucose 107 mg/dL (83-110); Potassium 4.1 mmol/L (3.5-5.1); Sodium 141 mmol/L (136-145)
[2020-09-03 16:59] VITALS: BP 123/68; TEMP 98
[2020-09-04] MEDS ORDERED: Tamsulosin HCl 0.4 MG CAP PO SCH (09:00)
--- NOTE | 2020-09-05 11:41 | CT ---
Exam: CTA chest with 3-D rendering: CTA abdomen with 3-D rendering: Postcontrast pelvic CT HISTORY: Abdominal pain. Right flank pain. COMPARISON: None TECHNIQUE: CT angiogram of the thoracic and abdominal aorta performed in the axial plane. Three-dimen sional reformatted images are submitted for interpretation. FINDINGS: Chest CT: Mediastinum: No mass, lymphadenopathy or hematoma Heart: Normal heart size. No significant pericardial fluid. Coronary arteries: Scattered atherosclerosis Trachea and central bronchi: Patent Pleural spaces: No pleural effusion. Right lung: No mass, consolidation or contusion Left lung: No mass, consolidation or contusion Pneumothorax: None Abdomen CT: Gallbladder: Surgically absent Portal vein: Limited evaluation due to arterial phase imaging. Contrast admixture does result in fill ing defect of the portal vein and central intrahepatic portal venous system. Solid organs: Appropriate arterial phase enhancement of the liver, spleen, pancreas and adrenal gland s Kidneys: Symmetric enhancement. No enhancing lesions. There is no evidence of right sided obstructive uropathy. There is mild dilatation of the left intrarenal and extrarenal collecting system. Mild left-sided perinephric fat stranding as well as periureteral fat stranding. Punctate 2 mm calculus in the left aspect of the bladder may represent a recently passed stone. Mesentery: No mass, lymphadenopathy, free air or free fluid Abdominal wall: Anterior abdominal wall hernia containing mesenteric fat. No bowel herniation Alimentary canal: Limited evaluation by the lack of oral contrast. No evidence of a bowel obstruction . Normal ileocecal junction. There is small bowel anastomosis in the left upper quadrant and right lower quadrant. Bariatric changes in the stomach. Diverticulosis of the left hemicolon. No evidence o f diverticulitis. Appendix is not appreciated. No inflammation of the cecal apex. Pelvic CT: No mass, lymphadenopathy, free air or free fluid. Unremarkable urinary bladder, with the e xception of a small bladder calculus as described above. Reproductive organs: Previous hysterectomy. Osseous structures: No lytic or blastic lesions. There is evidence of previous surgery at L3-L4. Grad e 1 anterolisthesis of L4 upon L5. There is vacuum disc phenomenon at L3-L4, L4-L5 and L5-S1. No evidence of high-grade central canal stenosis. Neural foraminal narrowing in the lower lumbar spine i s noted on the sagittal reformatted images. CT ANGIOGRAM: No CT evidence for aortic aneurysm or dissection. The origin of the great vessels of the neck are pat ent. The celiac artery origin, superior mesenteric artery origin demonstrate atherosclerosis without significant luminal narrowing. There is atherosclerosis without significant luminal narrowing involving the left and right renal artery ostium. Inferior mesenteric artery is patent. Aortic bifurcation and visualized iliac arteries are patent. IMPRESSION: 1. No CT evidence for aortic aneurysm or aortic dissection. 2. Mild left-sided obstructive uropathy secondary to a recently passed calculus in the urinary bladde r. 3. Degenerative changes and postsurgical changes of the lumbar spine 4. Bariatric surgical changes. No evidence of bowel obstruction. Diverticulosis, without evidence of diverticulitis. Transcribed Date/Time: 09/05/2020 11:41 AM
== END 2020-09-03 18:16 | disposition home or self-care (01) ==
LOC: ERS 19:55 → T4-A 09-03 01:33
PROVIDERS: ADMIT Family Medicine; ATTEND Family Medicine
DX: N20.0 Calculus of kidney (principal); E87.2 Acidosis; N17.9 Acute kidney failure, unspecified; I10 Essential (primary) hypertension; F31.9 Bipolar disorder, unspecified; Z66 Do not resuscitate; Z79.899 Other long term (current) drug therapy; Z20.828 Contact with and (suspected) exposure to other viral communicable diseases
CPT/HCPCS: 36415; 71275; 72193; 74174; 80048; 80053; 81003; 81015; 83605; 83690; 84484; 85025; 87635; 96374; 96375; G0378; J1170; J1200; J1630; J2270; J2405; Q9967; U0003

== ENCOUNTER 2020-11-23 15:01 | Emergency (ER) | payer OTHER ==
[2020-11-23] MEDS ORDERED: Ondansetron ODT 4 MG TAB ONE ×2 (15:25→15:26)
[2020-11-23] MEDS ORDERED: Lorazepam 2 MG/ML VIAL ONE (15:35)
[2020-11-23 16:11] LABS: #Basophils 0.1 thou/uL (0.0-0.2); #Eosinphils 0.3 thou/uL (0.0-0.7); #Lymphocytes 1.4 thou/uL (1.20-3.40); #Monocytes 0.4 thou/uL (0.11-0.59); #Neutrophils 3.2 thou/uL (1.40-6.50); %Eosinophils 5.8 % (0.0-10.0); %Lymphocytes 26.5 % (21.0-51.0); %Monocytes 6.6 % (0.0-10.0); %Neutrophils 60.1 % (42.0-75.0); Hemoglobin 14.3 g/dL (12.0-16.0); Mean Corpuscular HGB CONC 34.6 g/dL (32.0-36.0); Mean Corpuscular Hemoglobin 31.2 pg (27.0-31.0); Mean Corpuscular Volume 90.3 fL (78.0-98.0); Mean Platelet Volume 7.6 fL (7.4-10.4); Platelet Count 139 thou/uL (130-400); RBC Distribution Width 11.8 % (11.5-14.5); Red Blood Cell (RBC) Count 4.59 mill/uL (4.20-5.40); White Blood Cell (WBC) Count 5.4 thou/uL (4.8-10.8)
[2020-11-23 16:29] LABS: AST (SGOT) 18 U/L (5-34); Albumin 3.9 g/dL (3.4-4.8); Alkaline Phosphatase 77 U/L (40-110); Anion Gap 16 mmol/L (10-20); BUN (Urea Nitrogen) 15 mg/dL (9.8-20.1); Bilirubin, Total 0.8 mg/dL (0.2-1.2); Calc. Creatinine Clearance 0 mL/min (70-130); Calcium 9.3 mg/dL (7.8-10.44); Carbon Dioxide 20 mmol/L (23-31); Chloride 108 mmol/L (98-107); Globulin 2.6 g/dL (2.4-3.5); Glucose 206 mg/dL (83-110); Potassium 3.8 mmol/L (3.5-5.1); Protein, Total 6.5 g/dL (5.8-8.1); Sodium 140 mmol/L (136-145)
[2020-11-23 16:30] LABS: ALT (SGPT) 16 U/L (8-55)
[2020-11-23] MEDS ORDERED: Lidocaine Viscous Sol 2% 15 ml UD Cup ONE (16:53)
[2020-11-23] MEDS ORDERED: Mag-Al 1200 mg/1200 mg/30 ML UDCUP ONE (16:54)
[2020-11-23] MEDS ORDERED: Pantoprazole 40 MG VIAL ONE (16:54)
[2020-11-23 17:42] LABS: Bilirubin Negative (Negative); Blood, Urine Negative (Negative); Glucose, Urine (Dipstick) Negative (Negative); Ketone, Urine 15 mg/dL (Negative); Leukocyte Negative (Negative); Nitrite Negative (Negative); Protein, Urine (Dipstick) Negative (Neg-Trace); Urobilinogen 0.2 mg/dL (Less than 2); pH, Urine 6.5 (5.0-9.0)
[2020-11-23 17:53] LABS: Clarity Clear (Clear)
== END 2020-11-23 18:11 | disposition home or self-care (01) ==
LOC: ERS 15:01
DX: R42 Dizziness and giddiness (principal); R11.2 Nausea with vomiting, unspecified; R29.700 NIHSS score 0; I10 Essential (primary) hypertension; Z79.899 Other long term (current) drug therapy
CPT/HCPCS: 80053; 81003; 85025; 87086; 96365; 96372; 96375; C9113; J0500; J2060; Q0162

== ENCOUNTER 2021-03-21 10:09 | Observation (INO) | payer OTHER ==
[2021-03-21] MEDS ORDERED: Iopamidol-370 76% 500 ML 1 ML ONE (10:23)
[2021-03-21 11:49] LABS: #Basophils 0.1 thou/uL (0.0-0.2); #Eosinphils 0.7 thou/uL (0.0-0.7); #Lymphocytes 2.8 thou/uL (1.20-3.40); #Monocytes 0.5 thou/uL (0.11-0.59); #Neutrophils 3.6 thou/uL (1.40-6.50); %Basophils 1.5 % (0.0-1.0); %Eosinophils 9.1 % (0.0-10.0); %Lymphocytes 36.8 % (21.0-51.0); %Monocytes 5.9 % (0.0-10.0); %Neutrophils 46.7 % (42.0-75.0); Hemoglobin 16.6 g/dL (12.0-16.0); Mean Corpuscular HGB CONC 33.1 g/dL (32.0-36.0); Mean Corpuscular Hemoglobin 30.2 pg (27.0-31.0); Mean Corpuscular Volume 91.4 fL (78.0-98.0); Mean Platelet Volume 7.4 fL (7.4-10.4); Platelet Count 173 thou/uL (130-400); RBC Distribution Width 12.1 % (11.5-14.5); White Blood Cell (WBC) Count 7.7 thou/uL (4.8-10.8)
[2021-03-21 12:05] LABS: ALT (SGPT) 19 U/L (8-55); AST (SGOT) 20 U/L (5-34); Albumin 4.4 g/dL (3.4-4.8); Alkaline Phosphatase 86 U/L (40-110); Anion Gap 12 mmol/L (10-20); BUN (Urea Nitrogen) 15 mg/dL (9.8-20.1); Bilirubin, Total 1.1 mg/dL (0.2-1.2); CK (CPK) 17 U/L (29-168); Calc. Creatinine Clearance 0 mL/min (70-130); Carbon Dioxide 26 mmol/L (23-31); Chloride 105 mmol/L (98-107); Globulin 3.1 g/dL (2.4-3.5); Glucose 138 mg/dL (83-110); Lipase 14 U/L (8-78); Potassium 4.2 mmol/L (3.5-5.1); Protein, Total 7.5 g/dL (5.8-8.1); Sodium 139 mmol/L (136-145)
[2021-03-21] MEDS ORDERED: Aspirin 325 MG TAB ONE (14:24)
[2021-03-21 15:27] VITALS: BMI 32.5
[2021-03-21] MEDS ORDERED: Calcium Carbonate 500 MG ChewTAB PO PRN (16:00)
[2021-03-21] MEDS: Atorvastatin Calcium 40 MG TAB PO SCH (21:29)
[2021-03-21] MEDS ORDERED: Zolpidem Tartrate 5 MG TAB PO SCH (23:15)
[2021-03-22 05:47] LABS: #Basophils 0.1 thou/uL (0.0-0.2); #Eosinphils 0.6 thou/uL (0.0-0.7); #Lymphocytes 2.7 thou/uL (1.20-3.40); #Monocytes 0.6 thou/uL (0.11-0.59); #Neutrophils 3.5 thou/uL (1.40-6.50); %Basophils 0.9 % (0.0-1.0); %Eosinophils 8.4 % (0.0-10.0); %Lymphocytes 36.2 % (21.0-51.0); %Monocytes 7.7 % (0.0-10.0); %Neutrophils 46.8 % (42.0-75.0); Hemoglobin 14.1 g/dL (12.0-16.0); Mean Corpuscular HGB CONC 33.8 g/dL (32.0-36.0); Mean Corpuscular Hemoglobin 31.2 pg (27.0-31.0); Mean Corpuscular Volume 92.2 fL (78.0-98.0); Mean Platelet Volume 7.3 fL (7.4-10.4); Platelet Count 152 thou/uL (130-400); RBC Distribution Width 11.8 % (11.5-14.5); Red Blood Cell (RBC) Count 4.52 mill/uL (4.20-5.40); White Blood Cell (WBC) Count 7.4 thou/uL (4.8-10.8)
[2021-03-22 06:09] LABS: Anion Gap 12 mmol/L (10-20); BUN (Urea Nitrogen) 10 mg/dL (9.8-20.1); Calc. Creatinine Clearance 74 mL/min (70-130); Calcium 9.1 mg/dL (7.8-10.44); Carbon Dioxide 24 mmol/L (23-31); Chloride 108 mmol/L (98-107); Glucose 129 mg/dL (83-110); Potassium 4.1 mmol/L (3.5-5.1); Sodium 140 mmol/L (136-145)
[2021-03-22 08:35] LABS: Hemoglobin A1c 5.6 % (4.0-6.0)
[2021-03-22 08:51] LABS: Cardiac Risk 4.2 (Less than 4.5)
[2021-03-22] MEDS: Aspirin 81 mg Enteric Coated Tablet PO SCH (09:25)
[2021-03-22] MEDS: Enoxaparin Sodium 40 MG/0.4 ML SYRINGE SC SCH (09:26)
[2021-03-22] MEDS: Acetaminophen 325 MG TAB PO PRN ×2 (11:44→18:34)
[2021-03-22] MEDS ORDERED: Zolpidem Tartrate 5 MG TAB PO SCH (21:00)
[2021-03-22] MEDS: Atorvastatin Calcium 40 MG TAB PO SCH (21:25)
[2021-03-23 07:34] VITALS: BP 143/77; TEMP 97.6
[2021-03-23] MEDS ORDERED: cloNIDine 0.1 MG TAB PO SCH (09:00)
[2021-03-23] MEDS: Enoxaparin Sodium 40 MG/0.4 ML SYRINGE SC SCH (09:11)
[2021-03-23] MEDS: Aspirin 81 mg Enteric Coated Tablet PO SCH (09:11)
== END 2021-03-23 11:25 | disposition home health service (06) ==
LOC: ERS 10:09 → 2SE 14:28
PROVIDERS: ADMIT Student in an Organized Health Care Education/Training Program; ATTEND Student in an Organized Health Care Education/Training Program
DX: G45.9 Transient cerebral ischemic attack, unspecified (principal); E03.9 Hypothyroidism, unspecified; I11.0 Hypertensive heart disease with heart failure; I50.9 Heart failure, unspecified; I25.10 Atherosclerotic heart disease of native coronary artery without angina pectoris; G47.00 Insomnia, unspecified; H53.8 Other visual disturbances; M19.90 Unspecified osteoarthritis, unspecified site; Z66 Do not resuscitate; Z79.899 Other long term (current) drug therapy; Z95.810 Presence of automatic (implantable) cardiac defibrillator
CPT/HCPCS: 36415; 70450; 70496; 70498; 70551; 71045; 80048; 80053; 80061; 82550; 83036; 83690; 84443; 84484; 85025; 93005; 93306; J1650; Q9967

== ENCOUNTER 2024-04-12 20:14 | Emergency (ER) | payer OTHER ==
[2024-04-12] MEDS ORDERED: Dexamethasone 10 MG/ML VIAL ONE (20:32)
[2024-04-12] MEDS ORDERED: Ipratropium/Albuterol 3 ML NEB ONE (20:32)
[2024-04-12 21:25] LABS: #Basophils 0.03 10x3/uL (0.0-0.2); %Basophils 0.6 % (0.0-1.0); %Eosinophils 4.2 % (0.0-10.0); %Lymphocytes 47.9 % (21.0-51.0); %Monocytes 10.4 % (0.0-10.0); %Neutrophils 36.7 % (42.0-75.0); Hematocrit 37.9 % (36.0-47.0); Hemoglobin 13.1 g/dL (12.0-16.0); Mean Corpuscular HGB CONC 34.6 g/dL (32.0-36.0); Mean Corpuscular Hemoglobin 30.9 pg (27.0-31.0); Mean Corpuscular Volume 89.4 fL (78.0-98.0); Mean Platelet Volume 10.1 fL (7.4-10.4); Platelet Count 135 10x3/uL (130-400); RBC Distribution Width 12.6 % (11.5-14.5); Red Blood Cell (RBC) Count 4.24 mill/uL (4.20-5.40)
[2024-04-12 21:35] LABS: ALT (SGPT) 13 U/L (8-55); AST (SGOT) 18 U/L (5-34); Alkaline Phosphatase 61 U/L (40-110); Anion Gap 14 mmol/L (10-20); BUN (Urea Nitrogen) 16 mg/dL (9.8-20.1); Bilirubin, Total 0.8 mg/dL (0.2-1.2); Calc. Creatinine Clearance 0 mL/min (70-130); Calcium 8.9 mg/dL (7.8-10.44); Carbon Dioxide 26 mmol/L (23-31); Chloride 104 mmol/L (98-107); Estimated GFR 72; Globulin 2.7 g/dL (2.4-3.5); Glucose 122 mg/dL (83-110); Magnesium 1.6 mg/dL (1.6-2.6); Potassium 3.1 mmol/L (3.5-5.1); Protein, Total 5.7 g/dL (5.8-8.1); Sodium 141 mmol/L (136-145)
[2024-04-12 21:43] LABS: Troponin I Less than 0.010 ng/mL (< 0.028)
[2024-04-12] MEDS ORDERED: Potassium Bicarbonate/Cit Ac 20 MEQ TAB ONE (21:47)
[2024-04-12] MEDS ORDERED: Apixaban 5 MG TAB ONE (21:47)
[2024-04-12] MEDS ORDERED: Magnesium 2 GM/50 ML BAG (IN WATER) ONE (21:47)
[2024-04-12] MEDS ORDERED: Potassium Chloride 20 MEQ (100 mL) BAG ONE (21:47)
== END 2024-04-13 00:46 | disposition home or self-care (01) ==
LOC: ERS 20:14
DX: I26.94 Multiple subsegmental thrombotic pulmonary emboli without acute cor pulmonale (principal); U07.1 COVID-19; E87.6 Hypokalemia; E83.42 Hypomagnesemia; R06.02 Shortness of breath; I10 Essential (primary) hypertension; J45.909 Unspecified asthma, uncomplicated
CPT/HCPCS: 0241U; 36415; 71045; 71275; 80053; 83735; 83880; 84484; 85025; 93005; 94640; 94760; 96365; 96366; 96374; 96375; J1100; J3475; J3480; J7620; Q9967

== ENCOUNTER 2024-08-16 08:57 | Outpatient (CLI) | payer OTHER | END 2024-08-16 08:58 | disposition home or self-care (01) | LOC: CT 08:57 → BICCT 08:58 | PROVIDERS: ATTEND Family Medicine | DX: G43.909 Migraine, unspecified, not intractable, without status migrainosus (principal); R42 Dizziness and giddiness; Q28.3 Other malformations of cerebral vessels; R90.82 White matter disease, unspecified | CPT/HCPCS: 70450 ==

== ENCOUNTER 2024-10-07 16:42 | Emergency (ER) | payer MEDICARE, OTHER | END 2024-10-07 18:26 | disposition home or self-care (01) | LOC: ERS 16:42 | DX: M25.552 Pain in left hip (principal); I10 Essential (primary) hypertension; Z79.01 Long term (current) use of anticoagulants; Z79.899 Other long term (current) drug therapy; W01.0XXA Fall on same level from slipping, tripping and stumbling without subsequent striking against object, initial encounter; Y92.002 Bathroom of unspecified non-institutional (private) residence as the place of occurrence of the external cause | CPT/HCPCS: 99283 ==